=== PATIENT | male | born 1955 | race Caucasian/White ===

== ENCOUNTER 2020-12-27 18:49 | Emergency (ER) | payer BC ==
[2020-12-27 18:56] VITALS: TEMP 98.1
--- NOTE | 2020-12-27 20:21 | ED ---
Recheck HPI - General Chief Complaint: Recheck/Abnormal Lab/Rx Stated Complaint: Cast Problems Time Seen by Provider: 12/27/20 18:58 Source: patient Mode of arrival: wheelchair Limitations: no limitations - History of Present Illness Initial Comments: Patient is a 65-year-old male presenting to the emergency department with complaints of his cast on his right lower leg being too tight. Patient states about one week ago, he fell off his ladder, breaking his right ankle. He was seen and treated at [facility] as his son works in orthopedic department there. He had surgery a week ago and had a follow-up with his orthopedic today which was a few days earlier than planned, they put a cast of his right lower leg. He was still having a lot of swelling of his right ankle. Patient states over the last 5-6 hours it feels extremely tight around the right ankle and his pain has been increasing. Patient states she tried to call the office but jose bello is answering and his son recommended coming into the ER for us to loosen the cast. He denies any numbness and tingling. He denies any fevers or chills. He has no further complaints at this time. - Related Data Allergies Allergy/AdvReac Type Severity Reaction Status Date / Time No Known Allergies Allergy Verified 12/27/20 18:56 Review of Systems ROS Statement: Those systems with pertinent positive or pertinent negative responses have been documented in the HPI. ROS Other: All systems not noted in ROS Statement are negative. Past Medical History Past Medical History: Diabetes Mellitus History of Any Multi-Drug Resistant Organisms: None Reported Additional Past Surgical History / Comment(s): SPINAL FUSION, LAMINECTOMY Past Psychological History: No Psychological Hx Reported Smoking Status: Never smoker Past Alcohol Use History: None Reported Past Drug Use History: None Reported General Exam - General Exam Comments Initial Comments: GENERAL: Patient is well-developed and well-nourished. Patient is nontoxic and in mild distress. HEAD: Atraumatic, normocephalic. EYES: Pupils equal round and reactive to light, extraocular movements intact, sclera anicteric, conjunctiva are normal. Eyelids were unremarkable. LUNGS: Unlabored respirations. Breath sounds clear to auscultation bilaterally and equal. No wheezes rales or rhonchi. HEART: Regular rate and rhythm without murmurs, rubs or gallops. ABDOMEN: Soft, nontender, normoactive bowel sounds. MUSCULOSKELETAL: Patient has a cast of his entire right lower leg. He is able to wiggle his toes. After bivalving the cast, his skin appears intact, he has soft lower leg compartments. He is neurovascular intact. Mild to moderate swelling present. He is able to wiggle his toes. No clubbing or cyanosis. NEUROLOGICAL: Patient is alert and oriented x 3. PSYCH: Normal mood, normal affect. SKIN: Warm, Dry, normal turgor, no rashes. Patient has healing surgical incision on the right lower lateral ankle, approximately 7 cm in length. No signs of infection, no drainage. Sutures intact. Limitations: no limitations Course Vital Signs 12/27/20 12/27/20 18:52 20:39 Temperature 98.1 F Pulse Rate 97 87 Respiratory 16 18 Rate Blood Pressure 161/114 124/86 O2 Sat by Pulse 99 97 Oximetry Procedures - Cast Removal Reason for procedure: too tight Cut Saw used: Yes Cast procedure: bivalve Post Removal Neuro Exam: intact Post Removal Vascular Exam: intact Patient Tolerated Procedure: well Medical Decision Making - Medical Decision Making Patient is a 65-year-old male here with complaints of his cast on his right lower leg being too tight. It was just placed today. He had right ankle fracture and surgery one week ago at [facility]. Cast was bivalved today, post removal, his neurovascular intact, able to wiggle his toes, healing incision on the right lateral ankle appears well, sutures intact, no signs of infection. Cast was repositioned and held together with Kartik bandage. He does report major improvement in his symptoms, decreased pain. He is stable for discharge. He'll follow with his orthopedic. Patient is stable for discharge. Patient is in agreement with this plan of care. Return parameters were discussed with the patient and they verbalized understanding. Case discussed with Dr. Cabrera. Disposition Clinical Impression: Right ankle pain, Cast discomfort, Cast in place on lower extremity Disposition: HOME SELF-CARE Condition: Stable Instructions (If sedation given, give patient instructions): Cast Care (ED) Additional Instructions: Please return to the Emergency Department if symptoms worsen or any other concerns. Please remain nonweightbearing of the right lower extremity. May adjust tightness of the cast with Kartik bandages. Please follow up with your orthopedic surgeon. Is patient prescribed a controlled substance at d/c from ED?: No Referrals: Nonstaff,Physician [Primary Care Provider] - 1-2 days Time of Disposition: 20:21
[2020-12-27 20:40] VITALS: BP 124/86; PULSE 87; RESP 18
== END 2020-12-27 20:40 | disposition home or self-care (01) ==
LOC: EC 18:49
DX: M25.571 Pain in right ankle and joints of right foot (principal); M79.89 Other specified soft tissue disorders; G89.18 Other acute postprocedural pain; E11.9 Type 2 diabetes mellitus without complications; Z46.89 Encounter for fitting and adjustment of other specified devices
CPT/HCPCS: 99283